=== PATIENT | male | born 1945 | race Caucasian/White ===

== ENCOUNTER 2018-09-06 10:44 | Observation (INO) | payer MEDICARE, OTHER ==
[2018-09-01 15:17] LABS: BASOPHILS % 0.2 % (0.0-1.0); EOSINOPHILS % 0.4 % (0.0-6.0); HEMATOCRIT 39.8 % (38.2-49.6); HEMOGLOBIN 13.6 g/dL (14.0-18.0); LYMPHOCYTES % 18.2 % (18.0-39.1); MEAN CORPUSCULAR HEMOGLOBIN 35.1 pg (28-32); MEAN CORPUSCULAR HGB CONC 34.2 g/dL (31-35); MEAN CORPUSCULAR VOLUME 102.8 fL (81-99); MONOCYTES # (AUTO) 0.6 (0.2-0.8); MONOCYTES % 11.1 % (4.4-11.3); NEUTROPHILS # (AUTO) 3.8 (2.1-6.9); NEUTROPHILS % 69.9 % (38.7-80.0); PLATELET COUNT 201 x10e3/uL (140-360); RED BLOOD COUNT 3.87 x10e6/uL (4.3-5.7); RED CELL DISTRIBUTION WIDTH 13.9 % (11.7-14.4)
--- NOTE | 2018-09-01 15:41 | Diagnostic Imaging Report ---
EXAMINATION: PA and lateral views of the chest. COMPARISON: None CLINICAL HISTORY: Preadmit, urology surgery. Patient with history of asbestosis DISCUSSION: Lungs are well-inflated. Bilateral calcified pleural plaques and scattered foci of pleural thickening most notably along the right lung base and right apex. Coarse reticular opacities involving the right greater than left lung. No airspace consolidation or pleural effusion. Calcified nodule in the right midlung. Cardiomediastinal contour and pulmonary vasculature are within normal limits. IMPRESSION: No acute cardiopulmonary abnormality. Pulmonary and pleural findings are compatible with the reported clinical history of asbestosis. CT scan of the chest without contrast should be considered for further evaluation if not previously performed. Signed by: Dr. Rob Ro M.D. on 09/01/2018 3:38 PM
[~2018-09-06] VITALS: Ht 180.3 cm; Wt 86.4 kg
[~2018-09-06 10:44] MED LIST: AMLODIPINE; ASPIR 8181 MG; BENAZEPRIL; CARVEDILOL PO; METOPROLOL; MULTIVITAMINS1 EAC7; PANTOPRAZOLE; REMICADE IJ; SIMVASTATIN; SULFASALAZINE PO
--- OUTSIDE RECORDS SUMMARY | 2018-09-06 10:46 | XMS REPORT | Clinical Summary ---
Author Author [facility] Organization [facility] Address Unknown Phone Unavailable Care Team Providers Care Dough Cutting Machine Operator Name Role Phone Asked, No Pcp PCP Unavailable Allergies No Known Allergies Medications End Date Status Medication Sig Dispensed Refills Start Date Active simvastatin (ZOCOR) 20 MG Take 20 mg by 0 tablet mouth nightly. Active amlodipine-benazepril Take 1 0 (LOTREL) 10-20 mg per capsule by capsule mouth daily. Active pantoprazole (PROTONIX) Take 40 mg by 0 40 MG EC tablet mouth daily. Active Problems Problem Noted Date COPD exacerbation 06/26/2017 Preoperative testing 05/26/2017 Family History Medical History Relation Name Comments Heart disease Brother Heart disease Father Heart disease Mother Relation Name Status Comments Brother Father Mother Social History Date Tobacco Use Types Packs/Day Years Used Former Smoker Cigarettes 1 20 Smokeless Tobacco: Chew Current User Tobacco Cessation: Ready to Quit: No Alcohol Use Drinks/Week oz/Week Comments No Sex Assigned at Date Recorded Not on file Industry Job Start Date Occupation Not on file Not on file Not on file Travel End Travel History Travel Start No recent travel history available. Last Filed Vital Signs Not on file Plan of Treatment Health Maintenance Due Date Last Done Comments COLON CANCER SCREENING 1995 SHINGRIX VACCINE (1 of 2) 1995 ZOSTER VACCINE 2005 PNEUMOCOCCAL 2010 POLYSACCHARIDE VACCINE AGE 65 AND OVER PNEUMOCOCCAL-13 2010 INFLUENZA VACCINE 05/12/2018 Implants Device Identifier Shelf Expiration Date Model / Serial / Lot Implanted Type Area Manufactur er 02/08/2022 [id number] / [id number] / [id number] Algraft Chip Can Bn 60cc 4-9 - Human Posterior: [employer] [id number] - [id number] Tissue Spine Lumbar Implanted: Qty: 1 on 05/26/2017 by Roula Colon MD 01/15/2022 [id number] / [id number] / [id number] Algraft Chip Can Bn 60cc 4-9 - Human Posterior: [employer] [id number] - [id number] Tissue Spine Lumbar Implanted: Qty: 1 on 05/26/2017 by Roula Colon MD [id number] / / Screw [id number] Tsrh Osteogrip Barr - IPM Posterior: [employer] [id number] IMPLANT Spine Lumbar SOFAMOR Implanted: Qty: 2 on 05/26/2017 by DEVICES Roula Rosario MD [id number] / / Screw [id number] Tsrh Osteogrip Barr - IPM Posterior: [employer] [id number] IMPLANT Spine Lumbar SOFAMOR Implanted: Qty: 2 on 05/26/2017 by DEVICES Roula Rosario MD [id number] / / Pedicle Set Screw [id number] 0.25 32 IPM Posterior: [employer] Flsh Brk Lk Ti - [id number] IMPLANT Spine Lumbar SOFAMOR Implanted: Qty: 4 on 05/26/2017 by DEVICES Roula Rosario MD [id number] / / NONE Connector [id number] 6.35 Tsrh 3d Lrg IPM Posterior: [employer] Ti - [id number] IMPLANT Spine Lumbar SOFAMOR Implanted: Qty: 4 on 05/26/2017 by DEVICES Roula Rosario MD [id number] / / NONE Abraham [id number] [id number] Pcut Bent IPM Posterior: [employer] 5.0cmx6.35 - [id number] IMPLANT Spine Lumbar SOFAMOR Implanted: Qty: 1 on 05/26/2017 by DEVICES Roula Rosario MD [id number] / / NONE Abraham [id number] Tsr2d Pcut Bent IPM Posterior: [employer] 4.0cmx6.35 - [id number] IMPLANT Spine Lumbar SOFAMOR Implanted: Qty: 1 on 05/26/2017 by Roula Toscano MD 12/15/2018 [id number] / [id number] / [id number] Putty Dbm Dbx 10cc - Orthopedic Posterior: [employer] [id number] - [id number] Trauma Spine Lumbar LETAL Implanted: Qty: 1 on 05/26/2017 by Implants TRANSPLANT Roula Sidhu MD [facility] Device Identifier Shelf Expiration Date Model / Serial / Lot Explanted Type Area Manufactur er Lens Implant Both Eyes Results Not on fileafter 09/05/2017 Insurance Payer Benefit Subscriber ID Type Phone Address Plan / Group MEDICARE MEDICARE xxxxxxxxxx Medicare [place], [place] PART A AND B COMMERCIAL MISC MISC xxxxxx Commercial COMMERCIAL Advance Directives Patient has advance care planning documents on file. For more information, doreen nueñz contact: David Neley [address] [place] [address]
--- OUTSIDE RECORDS SUMMARY | 2018-09-06 10:46 | XMS REPORT ---
Author [facility] Address Unknown Phone Unavailable Care Team Providers Care Inside Sales Engineer Name Role Phone RACHEL PITTS Unavailable Unavailable Problems This patient has no known problems. Allergies, Adverse Reactions, Alerts This patient has no known allergies or adverse reactions. Medications This patient has no known medications. Results Test Description Test Time Test Comments Text Results Atomic Results Result Comments CHEST 2 VIEWS 2018-09-01 15:34:00 [place] [id number] Patient Name: PAULIE VELASQUEZ MR #: [id number] : 1945 Age/Sex: 73/M Req #: [id number] Adm Physician: Ordered by: RACHEL PITTS MD Report #: [id number] Location: OR Room/Bed: Procedure: [id number] DX/CHEST 2 VIEWS Exam Date: 09/01/18 Exam Time: 1510 REPORT STATUS: Signed EXAMINATION: PA and lateral views of the chest. COMPARISON: None CLINICAL HISTORY: Preadmit, urology surgery. Patient with history of asbestosis DISCUSSION: Lungs are well-inflated. Bilateral calcified pleural plaques and scattered foci of pleural thickening most notably along the right lung base and right apex. Coarse reticular opacities involving the right greater than left lung. No airspace consolidation or pleural effusion. Calcified nodule in the right midlung. Cardiomediastinal contour and pulmonary vasculature are within normal limits. IMPRESSION: No acute cardiopulmonary abnormality. Pulmonary and pleural findings are compatible with the reported clinical history of asbestosis. CT scan of the chest without contrast should be considered for further evaluation if not previously performed. Signed by: Dr. Warren Emery M.D. on 09/01/2018 3:38 PM Dictated By: WARREN EMERY MD 1538 Transcribed By: JOHN on 09/01/18 1538 COPY TO: RACHEL PITTS MD
[2018-09-06] MEDS ORDERED: CLINDAMYCIN 600MG / 50ML 50 ML IV ONE (11:03)
[2018-09-06] MEDS ORDERED: PIPER-TAZ 3.375 GM 50 ML ONE (11:03)
[2018-09-06] MEDS ORDERED: GENTAMICIN 80MG/NS 100 ML 200 ML IV ONE (11:04)
[2018-09-06] MEDS ORDERED: BENAZEPRIL HCL10 MG PO (11:39)
[2018-09-06] MEDS ORDERED: SIMVASTATIN40 MG PO (11:39)
[2018-09-06] MEDS ORDERED: SULFASALAZINE500 MG PO (11:39)
[2018-09-06] MEDS ORDERED: AMLODIPINE BESYL5 MG PO (11:39)
[2018-09-06] MEDS ORDERED: CARVEDILOL3.125 MG PO (11:39)
[2018-09-06] MEDS ORDERED: PANTOPRAZOLE SO40 MG PO (11:39)
[2018-09-06] MEDS ORDERED: BACITRACIN 50,000 UNIT VIAL ONE (11:51)
[2018-09-06] MEDS ORDERED: MUPIROCIN 2% OINT 22 GM TUBE ONE (11:51)
[2018-09-06] MEDS ORDERED: BUPIVACAINE HCL 0.5% INJ 30 ML VIAL INJ ONE (11:51)
[2018-09-06] MEDS ORDERED: NALOXONE HCL INJ 0.4 MG/ML AMP IV PRN (15:45)
[2018-09-06] MEDS ORDERED: DIPHENHYDRAMINE HCL INJ 50 MG/ML VIAL IM PRN (15:45)
[2018-09-06] MEDS ORDERED: DIPHENHYDRAMINE HCL 25 MG CAP PO PRN (15:45)
[2018-09-06] MEDS ORDERED: MORPHINE SULFATE 1 MG/ML 30ML PCA IV PRN (15:45)
[2018-09-06] MEDS ORDERED: MORPHINE SULFATE 1 MG/ML 30ML PCA ONE (15:50)
[2018-09-06] MEDS ORDERED: KETOROLAC TROMETHAMINE 30 MG/ML VIAL ONE (16:18)
[2018-09-06] MEDS ORDERED: MEPERIDINE HCL INJ 50 MG/ML INJ ONE (16:30)
[2018-09-06 16:45] VITALS: BP 146/75
--- OUTSIDE RECORDS SUMMARY | 2018-09-06 16:59 | XMS REPORT | Clinical Summary ---
Author Author [facility] Organization [facility] Address Unknown Phone Unavailable Care Team Providers Care Optics Test Technician Name Role Phone Asked, No Pcp PCP [...] Lot Implanted Type Area Manufactur er 02/08/2022 [id number] / [id number] / [id number] Algraft Chip Can Bn 60cc 4-9 - Human Posterior: [employer] [id number] - [id number] Tissue Spine Lumbar Implanted: Qty: 1 on 05/26/2017 by Roula Colon MD 01/15/2022 [id number] / [id number] / [id number] Algraft Chip Can Bn 60cc 4-9 - Human Posterior: [employer] [id number] - [id number] Tissue Spine Lumbar Implanted: Qty: 1 on 05/26/2017 by Roula Colon MD [id number] / / Screw [id number] Tsrh Osteogrip Barr - IPM Posterior: [employer] [id number] IMPLANT Spine Lumbar SOFAMOR Implanted: Qty: 2 on 05/26/2017 by DEVICES Roula Rosario MD [id number] / / Screw [id number] Tsrh Osteogrip Barr - IPM Posterior: [employer] [id number] IMPLANT Spine Lumbar SOFAMOR Implanted: Qty: 2 on 05/26/2017 by DEVICES Roula Rosario MD [id number] / / Pedicle Set Screw [id number] 0.25 32 IPM Posterior: [employer] Flsh Brk Lk Ti - [id number] IMPLANT Spine Lumbar SOFAMOR Implanted: Qty: 4 on 05/26/2017 by DEVICES Roula Rosario MD [id number] / / NONE Connector [id number] 6.35 Tsrh 3d Lrg IPM Posterior: [employer] Ti - [id number] IMPLANT Spine Lumbar SOFAMOR Implanted: Qty: 4 on 05/26/2017 by DEVICES Roula Rosario MD [id number] / / NONE Abraham [id number] Tsr2d Pcut Bent IPM Posterior: [employer] 5.0cmx6.35 - [id number] IMPLANT Spine Lumbar SOFAMOR Implanted: Qty: 1 on 05/26/2017 by DEVICES Roula Rosario MD [id number] / / NONE Abraham [id number] Tsr2d Pcut Bent IPM Posterior: [employer] 4.0cmx6.35 - [id number] IMPLANT Spine Lumbar SOFAMOR Implanted: Qty: 1 on 05/26/2017 by Roula Toscano MD 12/15/2018 [id number] / [id number] / [id number] Putty Dbm Dbx 10cc - Orthopedic Posterior: [employer] [id number] - [id number] Trauma Spine Lumbar LETAL Implanted: Qty: 1 on 05/26/2017 by Implants TRANSPLANT Roula Sidhu MD [facility] Device Identifier Shelf Expiration Date Model / Serial / Lot Explanted Type Area Manufactur er Lens Implant Both Eyes Results Not on fileafter 09/05/2017 Insurance Payer Benefit Subscriber ID Type Phone Address Plan / Group MEDICARE MEDICARE xxxxxxxxxx Medicare [place], [place] PART A AND B COMMERCIAL MISC MISC xxxxxx Commercial COMMERCIAL Advance Directives Patient has advance care planning documents on file. For more information, doreen nuñez contact: David Neely [address] [place] [address]
[2018-09-06 17:31] VITALS: BP 131/84
[2018-09-06] MEDS ORDERED: LIDOCAINE HCL 2% JELLY 5 ML TUBE ONE (17:59)
[2018-09-06] MEDS ORDERED: EPHEDRINE SULFATE INJ 50 MG/10 ML SYR ONE (17:59)
[2018-09-06] MEDS ORDERED: DEXAMETHASONE SOD PHOS INJ 4 MG/ML VIAL ONE (17:59)
[2018-09-06] MEDS ORDERED: LIDOCAINE HCL 2% LOCAL INJ 5 ML SDV VIAL INJ ONE (17:59)
[2018-09-06] MEDS ORDERED: PROPOFOL IV EMULSION 10 MG/ML 20 ML VIAL ONE (17:59)
[2018-09-06] MEDS ORDERED: ONDANSETRON HCL INJ 2 MG/ML VIAL ONE (17:59)
[2018-09-06] MEDS ORDERED: SEVOFLURANE INHAL SOLN 250 ML PEN BTL ONE (17:59)
[2018-09-06] MEDS: D5.45%NS/KCL 20MEQ 1,000 ML IV SCH (18:00)
[2018-09-06] MEDS ORDERED: FENTANYL CITRATE/PF 100MCG/2 ML INJ ONE (18:14)
[2018-09-06] MEDS ORDERED: MIDAZOLAM HCL 2 MG/2 ML VIAL ONE (18:14)
[2018-09-06] MEDS: DOCUSATE SODIUM 100 MG CAP PO SCH (18:36)
[2018-09-06 20:00] VITALS: BP 134/76
[2018-09-06 21:15] VITALS: BP 134/76
[2018-09-06] MEDS: CEFAZOLIN SOD 1 GM VIAL IV SCH (21:15)
[2018-09-06] MEDS: CLINDAMYCIN 300MG 50 ML IV SCH (21:33)
[2018-09-06] MEDS: ONDANSETRON HCL INJ 2 MG/ML VIAL IV PRN (21:34)
[2018-09-06] MEDS ORDERED: CEFAZOLIN SOD 1 GM/D5W 50ML 50 ML IV SCH (22:00)
[2018-09-07] VITALS (7 sets, daily range): BP systolic 125–184; BP diastolic 72–88
[2018-09-07] MEDS: D5.45%NS/KCL 20MEQ 1,000 ML IV SCH (03:07)
[2018-09-07 05:23] LABS: BASOPHILS % 0.1 % (0.0-1.0); HEMATOCRIT 35.2 % (38.2-49.6); HEMOGLOBIN 11.7 g/dL (14.0-18.0); LYMPHOCYTES # (AUTO) 0.6 (1.0-3.2); LYMPHOCYTES % 4.6 % (18.0-39.1); MEAN CORPUSCULAR HEMOGLOBIN 34.4 pg (28-32); MEAN CORPUSCULAR HGB CONC 33.2 g/dL (31-35); MEAN CORPUSCULAR VOLUME 103.5 fL (81-99); MONOCYTES % 8.5 % (4.4-11.3); NEUTROPHILS # (AUTO) 10.3 (2.1-6.9); NEUTROPHILS % 86.3 % (38.7-80.0); PLATELET COUNT 202 x10e3/uL (140-360); RED CELL DISTRIBUTION WIDTH 13.9 % (11.7-14.4)
[2018-09-07] MEDS: CLINDAMYCIN 300MG 50 ML IV SCH ×2 (05:35→14:16)
[2018-09-07] MEDS: ONDANSETRON HCL INJ 2 MG/ML VIAL IV PRN (05:35)
[2018-09-07] MEDS: CEFAZOLIN SOD 1 GM VIAL IV SCH ×2 (05:35→14:16)
[2018-09-07 05:43] LABS: ANION GAP 11.1 mmol/L (8-16); BLOOD UREA NITROGEN 12 mg/dL (7-26); BUN/CREATININE RATIO 11 (6-25); CALCIUM 8.8 mg/dL (8.4-10.2); CARBON DIOXIDE 26 mmol/L (22-29); CHLORIDE 105 mmol/L (98-107); CREATININE, SERUM 1.06 mg/dL (0.72-1.25); EST GLOMERULAR FILTRATION RATE > 60 ML/MIN (60-); GLUCOSE 164 mg/dL (74-118); POTASSIUM 5.1 mmol/L (3.5-5.1); SODIUM 137 mmol/L (136-145)
[2018-09-07] MEDS ORDERED: ACETAMINOPHEN/CODEINE 300MG - 30MG TAB PO PRN (08:45)
[2018-09-07] MEDS ORDERED: ONDANSETRON HCL INJ 2 MG/ML VIAL IV PRN (08:45)
[2018-09-07] MEDS: CARVEDILOL 3.125 MG TAB PO SCH ×2 (09:00→17:21)
[2018-09-07] MEDS ORDERED: PANTOPRAZOLE SOD 40 MG TABEC PO SCH (09:00)
[2018-09-07] MEDS: BENAZEPRIL HCL 10 MG TAB PO SCH ×2 (09:00→17:22)
[2018-09-07] MEDS: SULFASALAZINE 500 MG TAB PO SCH ×3 (09:00→17:22)
[2018-09-07] MEDS: AMLODIPINE BESYLATE 5 MG TAB PO SCH ×2 (09:00→17:22)
--- NOTE | 2018-09-07 09:22 | Discharge Summary ---
The patient was in observation. DIRECTOR FINANCIAL SERVICES: Dr. Brennan Rodrigues. FINAL DIAGNOSES 1. Status post implantation of inflatable penile prosthesis and cystoscopy. 2. Impotence. 3. Hypertension. SUMMARY: Patient is a 73-year-old male who is impotent. The patient is status post penile prosthesis implantation. Baseline hypertension and dyslipidemia. The patient is stable at this time. Koenig catheter in place. The patient will be discharging home after seeing Dr. Brennan Rodrigues today. The patient tolerated all his diet. The patient is stable and discharged home. Resume home medications. Job#: [id number]
[2018-09-07] MEDS: DOCUSATE SODIUM 100 MG CAP PO SCH ×2 (09:30→17:16)
--- NOTE | 2018-09-07 09:51 | Operative Report ---
DATE OF PROCEDURE: September 06, 2018 PREOPERATIVE DIAGNOSES 1. Organic impotence. 2. Prostate cancer, status post radiotherapy. POSTOPERATIVE DIAGNOSES 1. Organic impotence. 2. Prostate cancer, status post radiotherapy. PROCEDURES PERFORMED 1. Cystourethroscopy (separate procedure performed to evaluate the urinary tract in light of the prostate cancer and his previous radiotherapy). 2. Implantation of multicomponent inflatable penile prosthesis. STROKE PROGRAM COORDINATOR: Jessica Rodrigues MD COMPLICATIONS: None. ANESTHESIA: General. CLINICAL SUMMARY: Mehran Arthur is a 73-year-old man with organic impotence. He has prostate cancer status post radiotherapy. He has failed oral therapy and elected to proceed with implantation of a penile prosthesis. He is aware of the risks of bleeding, infection, injury to adjacent structures, need for additional procedures, erosion and he elected to proceed. OPERATIVE PROCEDURE IN DETAIL: Informed consent was identified. Mehran Arthur was properly identified, taken to the operating room, placed on the operating table in the supine position. Anesthesia was uneventfully begun. The patient's genitalia and abdomen were shaved, prepared for 10 minutes, and draped in the usual sterile fashion. Flexible cystourethroscopy was then performed. The flexible cystoscope was brought down the urethra. The urethra was unremarkable. The sphincteric region was normal. The prostate bed was significant for blanched mucosa with mild BPH. Panendoscopy of the urinary bladder revealed at least grade-1 trabeculations but no tumors, no stones and no diverticula. Normally positioned and configured ureteral orifices were identified. The cystoscope was removed. Koenig catheter was placed. A transverse penoscrotal incision was then made. We isolated first the left corpora and then the right corpora. The corpora was incised, and 2-0 Vicryl sutures were preplaced. We dilated the corpora to 13 mm and measured the corpora for a total length of 18 cm. An identical procedure was then performed on the right-hand side as well. We then utilized an 18-cm AMS 700 CX. We first placed the cylinder into the left corpora and tied down all the preplaced sutures. We then placed a cylinder in the right corpora and tied down all the preplaced sutures. We then created a subdartos pocket for the pump in the midline. We then bluntly dissected alongside the penis into the left inguinal region. We pierced through the internal ring medially. We created a space and placed the reservoir through there. We placed 65 mL of saline into the reservoir. We then utilized the Quick Connect System to connect the pump tubing to the reservoir. We tested the prosthesis, and it worked perfectly. Copious irrigation was performed at the placement of each component as well as at each layer of the closure. We closed off the pocket for the pump with a chromic suture. We then closed the scrotum in 3 layers utilizing chromic suture. The last layer was interrupted vertical mattress sutures for the skin. Sterile dressing was applied. The patient was uneventfully reversed from anesthesia and taken to the recovery room in stable condition. There were no complications to the procedure. He tolerated the procedure well. Will admit the patient overnight for intravenous antibiotics under observation status and most likely will discharge the patient tomorrow. Job#: [id number]
[2018-09-07] MEDS ORDERED: BACITRACIN ZINC 15 GM OINT TOP SCH (21:00)
[2018-09-07] MEDS ORDERED: SIMVASTATIN 40 MG TAB PO SCH (21:00)
== END 2018-09-07 20:20 | disposition home or self-care (01) ==
LOC: OR 10:44 → PACU V 15:38 → IMCU 16:59
PROVIDERS: ADMIT Urology; ATTEND Urology
DX: N52.9 Male erectile dysfunction, unspecified (principal); C61 Malignant neoplasm of prostate; N40.1 Benign prostatic hyperplasia with lower urinary tract symptoms; R39.14 Feeling of incomplete bladder emptying; R35.1 Nocturia; N43.3 Hydrocele, unspecified; Z88.5 Allergy status to narcotic agent; Z87.891 Personal history of nicotine dependence; I10 Essential (primary) hypertension; E78.5 Hyperlipidemia, unspecified; Z01.810 Encounter for preprocedural cardiovascular examination; Z01.812 Encounter for preprocedural laboratory examination; Z01.811 Encounter for preprocedural respiratory examination
CPT/HCPCS: 36415 ×3; 54405; 71046; 80048; 83735; 85025 ×2; 93005; C1813 ×2; G0378 ×2; J0690 ×2; J1100; J1580; J1885; J2001 ×2; J2175; J2250; J2270; J2405 ×2; J2543; J2704